=== PATIENT | male | born 1950 | race Caucasian/White ===

== ENCOUNTER → 2018-01-24 | Outpatient (CLI) | payer OTHER ==
--- NOTE | 2018-01-24 10:30 | PCVCIMAG ---
APPROVED REPORT Study performed: 01/24/2018 09:02:49 EXAM: Comprehensive 2D, Doppler, and color-flow Echocardiogram Patient Location: Echo lab Status: routine BSA: 2.17 HR: 80 bpmBP: 104/60 mmHg Rhythm: NSR Other Information Study Quality: Good Risk Factors: Cardiac Risk Factors: Hyperlipidemia, FHX of CAD Indications Tachycardia Hyperlipidemia 2D Dimensions IVSd: 11.33 (7-11mm)LVOT Diam: 20.69 (18-24mm) LVDd: 45.66 mm PWd: 9.69 (7-11mm)Ascending Ao: 32.34 (22-36mm) LVDs: 31.58 (25-40mm) Left Atrium: 40.00 (27-40mm) Aortic Root: 30.50 mm LV Single Plane 4CH: 66.25 % LV Single Plane 2CH: 56.10 % Biplane EF: 61.7 % Volumes Left Atrial Volume (Systole) Single Plane 4CH: 27.04 mLSingle Plane 2CH: 30.38 mL LA ESV Index: 30.00 mL/m2 Aortic Valve AoV Peak Emery.: 1.14 m/s AO Peak Gr.: 5.23 mmHg Mitral Valve E/A Ratio: 0.9 MV Decel. Time: 159.30 ms MV E Max Emery.: 0.85 m/s MV A Emery.: 0.90 m/s IVRT: 131.49 ms TDI E/Lateral E': 10.63E/Medial E': 10.63 Medial E' Emery.: 0.08 m/s Lateral E' Emery.: 0.08 m/s Pulmonary Valve PV Peak Gr.: 1.94 mmHg Pulmonary Vein P Vein S: 0.56 m/sP Vein A: 0.30 m/s P Vein D: 0.61 m/sP Vein A Dur.: 65.7 msec P Vein S/D Ratio: 0.92 Tricuspid Valve TR Peak Emery.: 1.42 m/s TR Peak Gr.: 8.08 mmHg Left Ventricle The left ventricle is normal size. There is normal LV segmental wall motion. There is normal left ventricular wall thickness. Left ventricular systolic function is normal. The left ventricular ejection fraction is within the normal range. LVEF is 60-65%. The left ventricular diastolic function is normal. Right Ventricle The right ventricle is normal size. The right ventricular systolic function is normal. Atria The left atrium size is normal. The right atrium size is normal. Aortic Valve The aortic valve is normal in structure. Trace aortic regurgitation. There is no aortic valvular stenosis. Mitral Valve The mitral valve is normal in structure. There is no mitral valve regurgitation noted. No evidence of mitral valve stenosis. Tricuspid Valve The tricuspid valve is normal in structure. There is no tricuspid valve regurgitation noted. Pulmonic Valve The pulmonary valve is normal in structure. There is no pulmonic valvular regurgitation. Great Vessels The aortic root is normal in size. IVC is normal in size and collapses >50% with inspiration. Pericardium There is no pericardial effusion. <Conclusion> The left ventricle is normal size. LVEF is 60-65%. The left ventricular diastolic function is normal. The right ventricle is normal size. The left atrium size is normal. The aortic valve is normal in structure. Trace aortic regurgitation. There is no mitral valve regurgitation noted. There is no tricuspid valve regurgitation noted. The aortic root is normal in size. There is no pericardial effusion.
--- NOTE | 2018-02-14 16:26 | PCVCIMAG ---
APPROVED REPORT Patient Location: Echo lab, Treadmill Strest Test Room #: Stress Nurse: Amarilis Glez RN Indications: History of SVT, Hyperlipiemia, Family hx CAD The patient exercised according to the Rj for 12:18 mins, achieving a work level level of Max. METS:14:20. The resting heart rate of 69bpm jorge to a maximal heart rate of 155bpm. This value represents 100% of the maximal, age-predicted heart rate. The resting blood pressure of 104/70mmHg, jorge to a maximum blood pressure of 148/68mmHg. The exercise test was stopped due to fatigue, target heart rate. Conclusion #1 patient subsegment any fatigue shortness of breath no reproduction of chest pain #2 no diagnostic EKG changes consistent with ischemia #3 excellent exercise tolerance with an appropriate hemodynamic response Impression: Negative treadmill stress test for ischemia.
== END | disposition home or self-care (01) ==
LOC: PCVCIMAG 09:01
PROVIDERS: ATTEND Internal Medicine Cardiovascular Disease
DX: I47.1 Supraventricular tachycardia (principal); K81.9 Cholecystitis, unspecified; E78.00 Pure hypercholesterolemia, unspecified; E78.5 Hyperlipidemia, unspecified; R07.9 Chest pain, unspecified
CPT/HCPCS: 93017; 93306

== ENCOUNTER → 2019-01-29 | Outpatient (CLI) | payer OTHER ==
--- NOTE | 2019-01-29 17:40 | PCVCIMAG ---
APPROVED REPORT Study performed: 01/29/2019 13:03:18 EXAM: Comprehensive 2D, Doppler, and color-flow Echocardiogram Patient Location: Echo lab Status: routine BSA: 2.18 HR: 73 bpm Rhythm: Atrial Fibrillation Other Information Study Quality: Adequate Indications Atrial Fibrillation 2D Dimensions IVSd: 10.78 (7-11mm)LVOT Diam: 21.34 (18-24mm) LVDd: 40.46 mm PWd: 9.30 (7-11mm)Ascending Ao: 33.39 (22-36mm) LVDs: 27.35 (25-40mm) Left Atrium: 34.93 (27-40mm) Aortic Root: 29.37 mm LV Single Plane 4CH: 53.33 % LV Single Plane 2CH: 44.50 % Biplane EF: 49.9 % Volumes Left Atrial Volume (Systole) Single Plane 4CH: 50.56 mLSingle Plane 2CH: 44.16 mL LA ESV Index: 23.00 mL/m2 Aortic Valve AoV Peak Emery.: 0.96 m/s AO Peak Gr.: 4.31 mmHgLVOT Max P.06 mmHg LVOT Max V: 0.85 m/s JOHNNY Vmax: 3.16 cm2 Mitral Valve E/A Ratio: 1.1 MV Decel. Time: 328.94 ms MV E Max Emery.: 1.08 m/s MV A Emery.: 1.01 m/s Pulmonary Valve PV Peak Gr.: 1.49 mmHg Tricuspid Valve TR Peak Emery.: 1.90 m/s TR Peak Gr.: 14.54 mmHg Left Ventricle The left ventricle is normal size. There is normal LV segmental wall motion. There is normal left ventricular wall thickness. Left ventricular systolic function is within lower limits of normal. LVEF is 50%. This study is not technically sufficient to allow evaluation of the LV diastolic function due to atrial fibrillation. Right Ventricle The right ventricle is normal size. The right ventricular systolic function is normal. Atria The left atrium size is normal. The right atrium size is normal. Aortic Valve The aortic valve is normal in structure. Mild aortic regurgitation. There is no aortic valvular stenosis. Mitral Valve The mitral valve is normal in structure. Mild mitral regurgitation. No evidence of mitral valve stenosis. Tricuspid Valve The tricuspid valve is normal in structure. Mild tricuspid regurgitation with PAP of 23 mmHg. Pulmonic Valve The pulmonary valve is normal in structure. Mild pulmonic regurgitation. Great Vessels The aortic root is normal in size. IVC is normal in size and collapses >50% with inspiration. Pericardium There is no pericardial effusion. There is no pleural effusion. <Conclusion> The left ventricle is normal size. Left ventricular systolic function is within lower limits of normal. LVEF is 50%. The right ventricle is normal size. The left atrium size is normal. The aortic valve is normal in structure. Mild aortic regurgitation. Mild mitral regurgitation. Mild tricuspid regurgitation with PAP of 23 mmHg. The aortic root is normal in size. There is no pericardial effusion.
== END | disposition home or self-care (01) ==
LOC: PCVCIMAG 12:52
PROVIDERS: ATTEND Internal Medicine Cardiovascular Disease
DX: I08.3 Combined rheumatic disorders of mitral, aortic and tricuspid valves (principal); I48.91 Unspecified atrial fibrillation; E78.00 Pure hypercholesterolemia, unspecified; I47.1 Supraventricular tachycardia; R93.1 Abnormal findings on diagnostic imaging of heart and coronary circulation; Z82.49 Family history of ischemic heart disease and other diseases of the circulatory system; Z79.899 Other long term (current) drug therapy
CPT/HCPCS: 93306

== ENCOUNTER → 2019-02-22 | Outpatient (CLI) | payer OTHER ==
[~2019-02-22] MED LIST: REGADENOSON 0.4 MG/5 ML DISP.SYRIN. IV ONE
--- NOTE | 2019-02-22 13:09 | PCVCIMAG ---
APPROVED REPORT Imaging Protocol: Rest Tc-99m/Stress Tc-99m 1 day Study performed: 02/22/2019 10:05:36 Indication: Chest pain, Abnormal EKG, CAD Patient Location: Out-Patient Stress Nurse: Amarilis Glez RN, Taniya Weinberg RN [place] Tech:Tamia HurleyZE yingMT Ht: 6 ft 3 in Wt: 195 lbs BSA: 2.17 m2 HR: 141 bpm BP: 113/66 mmHg BMI: 24.37 Rhythm: Atrial Fibrillation, RVR Medical History Medical History: CAD Medications: Aspirin, Statin, Eliquis Allergies: Lactose Cardiac Risk Factors: Age, FHX of CAD Pretest Chest Pain Characteristics: No chest pain Resting Data Rest SPECT myocardial perfusion imaging was performed in supine position 45 minutes following the intravenous injection of 10.5 mCi of Tc-99m Sestamibi. Time of rest injection: 09 Date: 02/22/2019 Administration Route: IV Administration Site: Right AC Pharmacologic Stress Pharmacologic stress test was performed by injecting Regadenoson 0.4 mg IV push over 10-15 seconds immediately followed by the intravenous injection of 34.2 mCi of Tc-99m Sestamibi. Time of stress injection: 1115 Date: 02/22/2019 Administration Route: IV Administration Site: Left AC Gated Stress SPECT was performed 45 minutes after stress injection. The images were gated to evaluate regional wall motion and calculate left ventricular ejection fraction. Stress Test Details Stress Test: Pharmacologic stress was paired with low level exercise. Reason for pharmacologic stress test: physical limitation, AFib and RVR. HRMax Heart Rate (APMHR): 154 bpm Resting HR: 141 bpmTarget HR (85% APMHR): 130 bpm Max HR Achieved: 176 bpm % of APMHR: 114 Recovery HR: 126 bpm BP Resting BP: 113/66 mmHg Max BP: 115/58 mmHg Recovery BP: 133/72 mmHg ECG Resting ECG: Atrial Fibrillation, RVR Stress ECG: Atrial Fibrillation, RVR ST Change: Non-ischemic Recovery ECG: Atrial Fibrillation, RVR Clinical Reason for Termination: Completed protocol Stress Symptoms: Dyspnea, Dizziness, Lightheaded Symptoms resolved with caffeine. Study Quality Study: Good Study Data Post stress, the left ventricular ejection was 63%.. SSS: 0 SRS: 0 SDS: 0 TID = 0.90. Perfusion Normal left ventricular perfusion. Normal perfusion on both the stress and rest images. Wall Motion Normal left ventricular wall motion. Nuclear Conclusion ECG Findings: negative for ischemia Clinical Findings: non-diagnostic Nuclear Findings: negative for ischemia Exercise Capacity: not assessed Left Ventricular Function: normal Risk Study: low This study is of low probability for inducible ischemia or prior infarct. Normal global and segmental LV systolic function.
== END | disposition home or self-care (01) ==
LOC: PCVCIMAG 09:30
PROVIDERS: ATTEND Internal Medicine Cardiovascular Disease
DX: R07.9 Chest pain, unspecified (principal); R94.31 Abnormal electrocardiogram [ECG] [EKG]; I25.10 Atherosclerotic heart disease of native coronary artery without angina pectoris
CPT/HCPCS: 78452; 93017; A9500; J2785